=== PATIENT | male | born 1950 | race Caucasian/White ===

== ENCOUNTER → 2021-08-28 | Outpatient (CLI) | payer OTHER ==
[~2021-08-28] MED LIST: CARTIA XT240 MG PO; CELEXA20 MG PO; COREG 25MG TAB25 MG PO; COUMADIN5 MG PO; GLUCOPHAGE1000 MG PO; HYDROCHLOROTHIA25 MG PO; NEURONTIN 300300 MG PO; PRINIVIL20 MG PO; TRAZODONE HCL100 MG PO; VITAMIN D35000 UNI1 PO; [UNRECOGNIZED DRUG - OTHER] SC
== END ==
LOC: EXRD 08-21 13:00
DX: M79.604 Pain in right leg (principal); M79.605 Pain in left leg; M79.671 Pain in right foot; M79.672 Pain in left foot; R60.0 Localized edema
CPT/HCPCS: 93925